=== PATIENT | female | born 1990 | race Caucasian/White ===

== ENCOUNTER 2020-07-05 12:03 | Outpatient (CLI) | payer OTHER, SELFPAY ==
--- NOTE | ~2020-07-05 | XR_ITS ---
EXAMINATION: XR ankle RT min 3V, XR foot RT min 3V EXAM DATE: 07/05/2020 12:27 INDICATION: R ankle pain . TECHNIQUE: Right foot dorsoplantar, lateral and oblique projections obtained and reviewed. Right ank le frontal, lateral and oblique projections obtained and reviewed. There is no prior study for treasure villanueva. FINDINGS: There is acute closed posttraumatic fracture through the base of the right 5th metatarsal b ase. The right ankle mortise appears intact. There is no subcutaneous gas. The soft tissue is unrem arkable. There are no radiopaque foreign bodies. IMPRESSION: Acute nondisplaced right 5th metatarsal base avulsion type fracture. I left a message for medical device sales of Alexandr Toro MD regarding this diagnosis on 07/05/2020 13:09 DIRECTOR [employer]NCIL. I provided my direct number, requested call back with questions. Reviewed, dictated and finalized at location B. [employer] IMPRESSION: Acute nondisplaced right 5th metatarsal base avulsion type fracture . I left a message for medical device sales of Alexandr Toro MD regarding this d iagnosis on 07/05/2020 13:09 DIRECTOR [employer]NCIL. I provided my direct number, requested call b ack with questions.
== END 2020-07-05 12:04 | disposition home or self-care (01) ==
PROVIDERS: PCP Internal Medicine; Visit Provider Internal Medicine
DX: M25.571 Pain in right ankle and joints of right foot (principal); S92.354A Nondisplaced fracture of fifth metatarsal bone, right foot, initial encounter for closed fracture
CPT/HCPCS: 73610; 73630

== ENCOUNTER 2020-07-28 15:48 | Outpatient (CLI) | payer OTHER, SELFPAY ==
--- NOTE | ~2020-07-28 | XR_ITS ---
XR foot RT min 3V 07/28/2020 16:15 Indication: Follow-up right fifth metatarsal fracture Procedure: 4 views right foot Comparison: 07/05/2020 Findings: No significant alteration of alignment of transverse extra-articular fracture base of the f ifth metatarsal. Lisfranc joint intact. Normal mineralization. No significant soft tissue abnormality . Impression: 1: Stable alignment of nondisplaced transverse fracture base of the right fifth metatarsal. Reviewed, dictated and finalized at location A. [employer] MA[employer]GER Impression: 1: Stable alignment of nondisplaced transverse fracture base of the right fifth metatarsal.
== END 2020-07-28 15:49 | disposition home or self-care (01) ==
LOC: CHSIMG 15:50
PROVIDERS: PCP Internal Medicine; Visit Provider Internal Medicine
DX: S92.354A Nondisplaced fracture of fifth metatarsal bone, right foot, initial encounter for closed fracture (principal)
CPT/HCPCS: 73630

== ENCOUNTER 2020-08-26 09:05 | Outpatient (CLI) | payer OTHER, SELFPAY ==
--- NOTE | ~2020-08-26 | XR_ITS ---
EXAMINATION: XR foot RT min 3V EXAM DATE: 08/26/2020 09:25 INDICATION: 5th metatarsal pain, fracture follow-up. TECHNIQUE: Right foot dorsoplantar, lateral and oblique projections obtained and reviewed. Compariso n is made to prior examination from 07/28/2020, 07/05/2020. FINDINGS: There is right 5th metatarsal base avulsion type fracture with indistinct fracture margin now demonstrating some sclerosis, evidence of routine healing. There is still incomplete osseous brid ging laterally. Recommend follow-up to ensure union. Otherwise unremarkable right foot. IMPRESSION: Subacute 5th metatarsal base nondisplaced avulsion. Recommend follow-up. Reviewed, dictated and finalized at location A. BOARD INSTALLER IMPRESSION: Subacute 5th metatarsal base nondisplaced avulsion. Recommend foll ow-up.
== END 2020-08-26 09:06 | disposition home or self-care (01) ==
LOC: CHSIMG 09:07
PROVIDERS: PCP Internal Medicine; Visit Provider Internal Medicine
DX: S92.351D Displaced fracture of fifth metatarsal bone, right foot, subsequent encounter for fracture with routine healing (principal)
CPT/HCPCS: 73630

== ENCOUNTER → 2022-06-28 12:41 | Outpatient (CLI) | payer OTHER, SELFPAY ==
--- NOTE | ~2022-06-28 | US_ITS ---
EXAMINATION: US transvaginal DATE: 06/28/2022 13:02 INDICATION: RT PELVIC FULLNESS TECHNIQUE: Multiple transabdominal and endovaginal sonographic images of the pelvis were obtained. COMPARISON: None. FINDINGS: Uterus: 7.3 x 3.6 x 4.4 cm. IUD, in good position. Endometrial complex measures 2 mm. Right Ovary: 3.5 x 1.6 x 1.9 cm. Vascular flow is present. Left Ovary: 3.2 x 1.9 x 1.8 cm. Vascular flow is present. There is small volume posterior cul-de-sac fluid, within physiologic range. IMPRESSION: IUD, in good position. Otherwise normal pelvic sonogram findings. Reviewed, dictated and finalized at location K. ETES CLINICAL MANAGER
== END ==
PROVIDERS: PCP Nurse Practitioner; Visit Provider Nurse Practitioner
DX: R14.0 Abdominal distension (gaseous) (principal); Z97.5 Presence of (intrauterine) contraceptive device
CPT/HCPCS: 76830